=== PATIENT | female | born 1930 | race Caucasian/White ===

== ENCOUNTER 2017-04-16 17:52 | Inpatient (IN) | payer MEDICARE, OTHER ==
[~2017-04-16] VITALS: Ht 162.6 cm; Wt 73.9 kg
[2017-04-16 19:45] LABS: BASO # 0.1 (0.0-0.2); BASO % 0.5 % (0.0-2.0); EOS % 0.2 % (0-4.0); GRAN # 13.5 (1.4-6.5); GRAN % 82.8 % (42.2-75.2); LYMPH # 1.4 (1.2-3.4); LYMPH % 8.7 % (20.0-51.0); MEAN CELL VOLUME 96 fl (80.0-100.0); MEAN CORPUSCULAR HGB CONC 33 g/dl (33.0-37.0); MEAN PLATELET VOLUME 9.9 fl (7.4-10.4); MONO # 1.2 (0.1-0.6); MONO % 7.2 % (1.7-9.3); PLATELET COUNT 247 K/mm3 (130-400); RED BLOOD COUNT 3.55 M/mm3 (4.10-5.30); REDCELL DISTRIBUTION WIDTH-CV 12.8 % (11.5-14.5)
[2017-04-16 19:47] LABS: HEMOGLOBIN 11.1 g/dl (12.5-16.0); MEAN CORPUSCULAR HEMOGLOBIN 31 pg (27.0-31.0)
[2017-04-16 19:51] LABS: INR 1.1 (0.8-3.0); PROTHROMBIN TIME 12.2 SECONDS (9.7-12.8)
[2017-04-16 19:55] LABS: ALBUMIN 3.5 gm/dL (3.5-5.0); BILIRUBIN,TOTAL 0.8 mg/dL (0.0-1.0); CALCIUM 8.9 mg/dL (8.4-10.2); CREATININE, serum 0.79 mg/dL (0.52-1.25); POTASSIUM 3.6 mmol/L (3.4-5.0); TOTAL PROTEIN 6.3 gm/dL (6.4-8.2)
[2017-04-16 21:24] VITALS: BP 125/60; PULSE 67; TEMP 98.1
[2017-04-16 21:36] LABS: MUCOUS Present /lpf; PH 7 (5-8); SQUAMOUS EPITHELIAL None Seen /hpf; URINE APPEARANCE Clear; URINE BACTERIA None Seen /hpf; URINE BILIRUBIN Negative (NEGATIVE); URINE BLOOD Negative (NEGATIVE); URINE COLOR Yellow; URINE GLUCOSE Negative (NEGATIVE); URINE KETONE 1+ (NEGATIVE); URINE LEUKOCYTE ESTERASE Negative (NEGATIVE); URINE NITRATE Negative (NEGATIVE); URINE PROTEIN(semi-quant) Negative (NEGATIVE); URINE RBC 0-2 /hpf; URINE UROBILINOGEN Negative (NEGATIVE)
[2017-04-16 21:45] LABS: COLLECTION METHOD CLEAN CATCH
[2017-04-16] MEDS ORDERED: PRAVACHOL 40MG40 MG PO (22:51)
[2017-04-16] MEDS ORDERED: OMEGA-3 1000 MG1 CAP PO (22:52)
[2017-04-16] MEDS ORDERED: PRIL40 PO (22:53)
[2017-04-16] MEDS ORDERED: THE MEDICINE S200 M2 PO (22:54)
[2017-04-16] MEDS ORDERED: METAMUCIL3.4 GM/DOS PO (22:56)
[2017-04-16] MEDS ORDERED: ASPIRIN 81M81 MG/TA2 PO (22:56)
[2017-04-16] MEDS ORDERED: MIRALAX PA17 GM/Dose PO (22:57)
[2017-04-17] VITALS (12 sets, daily range): BP systolic 96–130; BP diastolic 38–78; PULSE 64–84; TEMP 97.4–99.7
[2017-04-17 06:47] LABS: BASO % 0.4 % (0.0-2.0); EOS % 0.3 % (0-4.0); GRAN # 6.7 (1.4-6.5); GRAN % 69.6 % (42.2-75.2); LYMPH # 1.8 (1.2-3.4); LYMPH % 18.9 % (20.0-51.0); MEAN CELL VOLUME 97 fl (80.0-100.0); MEAN CORPUSCULAR HGB CONC 32 g/dl (33.0-37.0); MEAN PLATELET VOLUME 10.6 fl (7.4-10.4); MONO % 10.3 % (1.7-9.3); PLATELET COUNT 225 K/mm3 (130-400); REDCELL DISTRIBUTION WIDTH-CV 13.1 % (11.5-14.5)
[2017-04-17 06:50] LABS: HEMATOCRIT 31.1 % (37.0-47.0); MEAN CORPUSCULAR HEMOGLOBIN 31 pg (27.0-31.0)
[2017-04-17 07:01] LABS: CALCIUM 8.4 mg/dL (8.4-10.2); CREATININE, serum 0.75 mg/dL (0.52-1.25); POTASSIUM 4.4 mmol/L (3.4-5.0)
[2017-04-18 01:47] VITALS: BP 111/46; PULSE 82; TEMP 101
[2017-04-18 05:41] VITALS: BP 105/55; PULSE 82; TEMP 98.6
[2017-04-18 09:37] VITALS: BP 110/48; PULSE 83; TEMP 99.5
[2017-04-18 11:35] LABS: BASO # 0.1 (0.0-0.2); BASO % 0.4 % (0.0-2.0); EOS % 0.3 % (0-4.0); GRAN # 8.1 (1.4-6.5); HEMATOCRIT 25.9 % (37.0-47.0); HEMOGLOBIN 8.2 g/dl (12.5-16.0); LYMPH # 2.3 (1.2-3.4); LYMPH % 19.3 % (20.0-51.0); MEAN CELL VOLUME 100 fl (80.0-100.0); MEAN CORPUSCULAR HEMOGLOBIN 32 pg (27.0-31.0); MEAN CORPUSCULAR HGB CONC 32 g/dl (33.0-37.0); MEAN PLATELET VOLUME 10.8 fl (7.4-10.4); MONO # 1.3 (0.1-0.6); MONO % 10.7 % (1.7-9.3); PLATELET COUNT 185 K/mm3 (130-400); REDCELL DISTRIBUTION WIDTH-CV 13.1 % (11.5-14.5)
[2017-04-18 11:45] LABS: CALCIUM 8.1 mg/dL (8.4-10.2); CREATININE, serum 0.78 mg/dL (0.52-1.25); MAGNESIUM 1.7 mg/dL (1.6-2.3); PHOSPHOROUS 3.6 mg/dL (2.5-4.5); POTASSIUM 4.2 mmol/L (3.4-5.0)
[2017-04-18 13:02] LABS: COLLECTION METHOD CATHETER
[2017-04-18 13:14] LABS: MUCOUS Present /lpf; PH 5 (5-8); SQUAMOUS EPITHELIAL 0-2 /hpf; URINE APPEARANCE Hazy; URINE BACTERIA Rare /hpf; URINE BILIRUBIN Negative (NEGATIVE); URINE BLOOD 1+ (NEGATIVE); URINE COLOR Amber; URINE GLUCOSE Negative (NEGATIVE); URINE KETONE Negative (NEGATIVE); URINE LEUKOCYTE ESTERASE 3+ (NEGATIVE); URINE NITRATE Negative (NEGATIVE); URINE PROTEIN(semi-quant) 1+ (NEGATIVE); URINE UROBILINOGEN Negative (NEGATIVE); URINE WBC 20-50 /hpf
[2017-04-18 13:58] VITALS: BP 106/41; PULSE 73; TEMP 98.3
[2017-04-18 18:00] VITALS: BP 123/45; PULSE 88; TEMP 98.7
[2017-04-18 20:44] VITALS: BP 111/44; PULSE 82; TEMP 101.3; TEMP 99.3
[2017-04-19 00:36] VITALS: BP 114/81; PULSE 104; TEMP 99.6
[2017-04-19 04:27] VITALS: BP 112/60; PULSE 93; TEMP 99
[2017-04-19 07:01] LABS: BASO % 0.3 % (0.0-2.0); EOS # 0.1 (0.0-0.7); EOS % 0.6 % (0-4.0); GRAN # 10.4 (1.4-6.5); LYMPH # 1.4 (1.2-3.4); LYMPH % 10.3 % (20.0-51.0); MEAN CELL VOLUME 97 fl (80.0-100.0); MEAN CORPUSCULAR HGB CONC 33 g/dl (33.0-37.0); MEAN PLATELET VOLUME 10.7 fl (7.4-10.4); MONO # 1.4 (0.1-0.6); MONO % 10.4 % (1.7-9.3); PLATELET COUNT 191 K/mm3 (130-400); RED BLOOD COUNT 2.45 M/mm3 (4.10-5.30); REDCELL DISTRIBUTION WIDTH-CV 12.8 % (11.5-14.5)
[2017-04-19 07:27] LABS: HEMATOCRIT 23.7 % (37.0-47.0); HEMOGLOBIN 7.8 g/dl (12.5-16.0); MEAN CORPUSCULAR HEMOGLOBIN 32 pg (27.0-31.0)
[2017-04-19 07:33] LABS: CALCIUM 8.2 mg/dL (8.4-10.2); CREATININE, serum 0.73 mg/dL (0.52-1.25); MAGNESIUM 1.7 mg/dL (1.6-2.3); PHOSPHOROUS 3.1 mg/dL (2.5-4.5); POTASSIUM 4.2 mmol/L (3.4-5.0)
[2017-04-19 09:22] VITALS: BP 97/48; PULSE 87; TEMP 99.9
[2017-04-19 13:25] VITALS: BP 106/52; PULSE 89; TEMP 99.4
[2017-04-19 17:45] VITALS: BP 95/42; PULSE 81; TEMP 99.4
[2017-04-19 21:14] VITALS: BP 90/38; PULSE 88; TEMP 98.5
[2017-04-20 01:07] VITALS: BP 90/38; PULSE 80; TEMP 98.5
[2017-04-20 05:45] VITALS: BP 121/57; PULSE 90; TEMP 98.4
[2017-04-20 06:50] LABS: BASO # 0.1 (0.0-0.2); BASO % 0.5 % (0.0-2.0); EOS # 0.4 (0.0-0.7); EOS % 3.2 % (0-4.0); GRAN # 7.5 (1.4-6.5); GRAN % 67.5 % (42.2-75.2); LYMPH # 1.9 (1.2-3.4); LYMPH % 17.2 % (20.0-51.0); MEAN CELL VOLUME 98 fl (80.0-100.0); MEAN CORPUSCULAR HGB CONC 33 g/dl (33.0-37.0); MEAN PLATELET VOLUME 10.3 fl (7.4-10.4); MONO # 1.3 (0.1-0.6); MONO % 11.2 % (1.7-9.3); PLATELET COUNT 217 K/mm3 (130-400); REDCELL DISTRIBUTION WIDTH-CV 12.7 % (11.5-14.5)
[2017-04-20 06:58] LABS: CALCIUM 8.2 mg/dL (8.4-10.2); CREATININE, serum 0.79 mg/dL (0.52-1.25); POTASSIUM 3.9 mmol/L (3.4-5.0)
[2017-04-20 07:15] LABS: HEMATOCRIT 22.5 % (37.0-47.0); HEMOGLOBIN 7.4 g/dl (12.5-16.0); MEAN CORPUSCULAR HEMOGLOBIN 32 pg (27.0-31.0)
[2017-04-20] MEDS ORDERED: FERROUS SU325 MG/TAB PO (09:29)
[2017-04-20] MEDS ORDERED: CIPRO 250MG TA250 MG PO (09:29)
[2017-04-20] MEDS ORDERED: ASPI325T6 PO (09:30)
[2017-04-20] MEDS ORDERED: ROXICODONE 55 MG/TAB PO (09:32)
[2017-04-20] MEDS ORDERED: TYLENOL 325MG325 MG PO (09:33)
[2017-04-20] MEDS ORDERED: GOOD NEIGH1200 MG/15 PO (09:33)
[2017-04-20 09:36] VITALS: BP 143/53; PULSE 80; TEMP 98.4
[2017-04-20 12:59] VITALS: BP 143/53; PULSE 80; TEMP 98.4
== END 2017-04-20 13:15 | disposition swing bed (61) | DRG 481 ==
LOC: SURG 17:52
PROVIDERS: Internal Medicine; Nurse Practitioner; Orthopaedic Surgery Sports Medicine; Physician Assistant
PROC: 0QS804Z Reposition Right Femoral Shaft with Internal Fixation Device, Open Approach (ICD-10-PCS; principal; 2017-04-17 13:30)
DX: M80.051A Age-related osteoporosis with current pathological fracture, right femur, initial encounter for fracture (principal); M97.01XA Periprosthetic fracture around internal prosthetic right hip joint, initial encounter; E87.1 Hypo-osmolality and hyponatremia; N39.0 Urinary tract infection, site not specified; W18.30XA Fall on same level, unspecified, initial encounter; I10 Essential (primary) hypertension; G60.0 Hereditary motor and sensory neuropathy; M21.371 Foot drop, right foot; Z85.3 Personal history of malignant neoplasm of breast; E87.6 Hypokalemia; D64.9 Anemia, unspecified; Z87.891 Personal history of nicotine dependence
CPT/HCPCS: 99222-AI; 99231-AI; 99232-AI; 99239; A9284; C1713; C1776; C9113; J0690; J0696; J2250; J2270; J2405; J2704; J3010; J3480; J7060; J7120; J7121